=== PATIENT | female | born 1985 | race Caucasian/White ===

== ENCOUNTER 2023-10-20 14:58 | Emergency (ER) | payer OTHER, SELFPAY ==
--- NOTE | ~2023-10-20 | CT_ITS ---
EXAMINATION: CT ABDOMEN AND PELVIS WITH CONTRAST CLINICAL INFORMATION: Epigastric, right lower quadrant tenderness, rule out appendicitis COMPARISON: None TECHNIQUE: Multiple axial images were obtained from the superior aspect of the liver through the pubic symphysis after the administration of 85 mL of intravenous Omnipaque 350. Images were evaluated on independent dedicated 3-D workstation and 3-D images were reconstructed with concurrent radiologist supervision and subsequently interpreted. Oral contrast was not administered. This CT examination was performed using dose optimization techniques as appropriate, variously including the following: *Automated exposure control *Adjustment of mA and/or kV according to patient size (this includes techniques or standardized protocols for targeted exams where dose is matched to indication/reason for exam; i.e. extremities or head) *Use of iterative reconstruction technique DLP: 462 mGy-cm FINDINGS: LUNG BASES: The visualized lung bases are clear. CARDIOMEDIASTINUM: The visualized heart is normal in size without pericardial effusion. No coronary artery calcification. LIVER: Homogeneous and attenuation. Large measuring 19 cm in the midclavicular line. GALLBLADDER: Noninflamed. BILIARY SYSTEM: No intrahepatic or extrahepatic biliary dilation. PANCREAS: Homogeneous in attenuation. SPLEEN: Normal in size. GENITOURINARY: Bilateral kidneys demonstrate symmetric enhancement. No perinephric fluid collection. No renal calculi. No hydroureteronephrosis. ADRENAL GLANDS: Unremarkable. REPRODUCTIVE: Anteverted uterus. Peripherally enhancing hypodense mass in the right ovary measuring 2.2 cm. No periovarian inflammatory changes. GASTROINTESTINAL: The visualized alimentary tract is normal in course. No evidence of obstruction. APPENDIX: The appendix is seen in its entirety and is unremarkable. PERITONEUM: No pneumoperitoneum. No intra-abdominal fluid collection. VASCULATURE: The abdominal aorta is normal in course and caliber. LYMPH NODES: No pathologically enlarged abdominal or pelvic lymph nodes. SOFT TISSUES/MUSCULOSKELETAL: There is no acute fracture or significant focal osseous lesion. CT/CT abdomen pelvis w IV con IMPRESSION: Hyperdense peripherally enhancing right ovarian mass, likely representing a hemorrhagic cyst. There is no CT evidence of ovarian torsion, however this cannot be excluded based off this scan. Recommend pelvic ultrasound for further evaluation if clinically indicated. Normal appearance of appendix without appendicitis. Fleischner guidelines were followed. Electronically signed by: Victor Hugo Mondragon DO 10/20/2023 09:36 PM EDT
[2023-10-20 15:23] VITALS: BP 111/68; PULSE 71; RESP 18; TEMP 36.6; O2SAT 100; BMI 22.8
--- NOTE | 2023-10-20 15:23 | ED.ABDPAIN ---
HPI - Abdominal Pain General Chief Complaint: Abdominal Pain Stated Complaint: Upper abd pain 2hrs+ Time Seen by Provider: 10/20/23 17:15 Source: patient Mode of arrival: ambulatory Limitations: no limitations History of Present Illness ED Provider: Dr. Kevin Saenz HPI narrative: 38-year-old female recently diagnosed with H pylori taking clarithromycin, amoxicillin and omeprazole x1 week who presents emergency department for evaluation of abdominal pain. Patient states she had a sudden onset of epigastric pain around 13:00 hours. The pain was sharp and severe and was 9/10. The pain then migrated to her pelvic area in his now 3/10. She states she has had similar pain at least twice over the past month. She states that her doctor did a lot of tests on her and she had a breath test which was positive for H pylori. She states that today's episode however was more severe and lasted longer than her previous episodes. Patient had associated nausea with no vomiting. She denied fever, chills, frequency, urgency, dysuria or diarrhea. She denied heartburn like symptoms. Related Data Previous Rx's ?Medication ?Instructions ?Recorded ondansetron 4 mg disintegrating 4 mg PO Q6-8H PRN nausea and 10/20/23 tablet vomiting #14 tabs Allergies Allergy/AdvReac Type Severity Reaction Status Date / Time No Known Allergies Allergy Verified 10/20/23 15:25 Review of Systems Review of Systems Yes all other systems are reviewed and are negative [facility] Past Medical History [facility] Narrative: Social history: She denies tobacco use. She occasionally drinks alcohol. She denies drug use. Social History Social History Smoked in Last 30 Days: No Use of substances other than those prescribed or required for medical reasons: No Advance Directives: No Advance Directives Information Provided: No Do you have a plan to hurt others: No Plan Patient : No Physical Exam ED Vital Signs: Vital Signs - 24 hr 10/20/23 15:23 10/20/23 16:00 10/20/23 17:52 Temperature 97.9 F 98.4 F 97.9 F Pulse Rate 71 60 71 Respiratory Rate 18 14 18 Blood Pressure 111/68 110/69 111/68 Pulse Oximetry 100 100 100 Oxygen Delivery Method Room Air Room Air Room Air 10/20/23 18:00 10/20/23 20:00 Temperature 98.1 F 97.9 F Pulse Rate 68 62 Respiratory Rate 16 16 Blood Pressure 121/70 91/49 L Pulse Oximetry 100 97 Oxygen Delivery Method Room Air Room Air BMI result Body Mass Index 22.8 Vital signs were normal Exam: General: Awake, alert in no distress Head: Normocephalic, atraumatic EENT: PERRL, Lids normal, sclera normal, conjunctiva normal, nose normal , ears normal, throat without erythema or exudates Neck: Supple, no adenopathy Lung: breath sounds symmetric, no wheezing, rales or rhonchi Chest: symmetric movement, nontender Heart: regular rate and rhythm, normal S1, S2 no murmurs or rubs Abdomen: soft, no right upper quadrant tenderness, negative Nix sign, no epigastric tenderness, patient has moderate right lower quadrant and mild to moderate left lower quadrant tenderness with no rebound, no voluntary or involuntary guarding Back: no vertebral tenderness, no CVAT Extremities: no deformities, moves all extremities symmetrically Neuro: Awake, alert, oriented, normal speech, cranial nerves intact, moves all extremities symmetrically Psych: Pleasant, cooperative Course Course Course Narrative: This is a rapid medical exam. Deferred additional HPI, ROS, PE to primary provider. 38yo female here with complaints of mid/upper abdominal pain x several hours with nausea. No vomiting/diarrhea. Was positive for h.pylori, started antibiotic 7 days. No abdominal surgical history LMP 09/30 Will need labs, UA, ur preg. DULCE MARIA Bedoya APRN Medical Decision Making Medical Decision Making [facility] Narrative: 38-year-old female recently diagnosed with H pylori taking clarithromycin, amoxicillin and omeprazole x1 week who presents emergency department for evaluation of abdominal pain which came on suddenly at 13:00 hours, was severe and 9/10 located in the epigastric area and then migrated to the pelvic area and is currently 3/10. Patient had associated nausea with no vomiting. She had at least 2 episodes of similar pain over the last month which led to the diagnosis of H pylori. Differential diagnosis: ?Includes but is not limited to gastritis, GERD, peptic ulcer disease, gastric ulcer, biliary disease, cholecystitis, pancreatitis, appendicitis, anemia, electrolyte abnormalities, related pain Following tests were ordered: CBC, BMP, liver panel, lipase, quantitative beta-hCG, urinalysis, CT scan abdomen pelvis with IV contrast Patient was initially treated with the following: IV insert, normal saline x1 L Course: 17:50 My independent interpretation patient's laboratory evaluation is as follows: Elevated WBC 75743. Elevated glucose 118. LFTs were normal. Lipase was normal. Quantitative beta-hCG is was negative. Urinalysis was negative 22:22 CT scan of the patient's abdomen pelvis revealed a normal-appearing appendix. The patient does have a 2 cm right hemorrhagic ovarian cyst. The patient's repeat abdominal exam revealed no significant abdominal tenderness in the right lower quadrant or right pelvic area. The patient's pain resolved without treatment. At this time I do not think that the patient was acute appendicitis and I think that the hemorrhagic ovarian cyst is an incidental finding and I discuss this with the patient. Patient's symptoms are most likely caused by the clarithromycin that she was taking to treat her H pylori. I did discuss this with the patient. She was advised to take Tylenol as soon as she starts to get recurrence of the pain and to take Zofran ODT when she gets nausea. Patient was advised to follow up with her PCP to get outpatient ultrasound to follow the ovarian cyst to make sure that it is not getting bigger. She was given printed and verbal instructions and discharged home. Admission/Observation Consideration of admission/observation: Escalation of care including admission/observation considered Lab Data MDM Lab Attestation statement: I reviewed the patient's lab results. 10/20/23 15:37 10/20/23 15:37 Labs: Lab Results 10/20/23 10/20/23 Range/Units 15:37 17:58 WBC 11.9 H (4.8-10.8) X10*3/uL RBC 4.48 (4.20-5.50) X10*6/uL Hgb 12.6 (12.0-16.0) g/dl Hct 37.4 (37.0-47.0) % MCV 83.5 (80.0-98.0) fL MCH 28.1 (27.0-33.0) pg MCHC 33.7 (31.0-35.0) g/dl RDW 13.5 (11.0-16.0) % Plt Count 287 (160-400) X10*3/uL MPV 9.6 (9.4-12.3) fL Immature Gran % (Auto) 0.3 (0.0-0.4) % Neut % (Auto) 64.9 (45-73) % Lymph % (Auto) 17.0 L (20-40) % [place] % (Auto) 5.2 (2-11) % Eos % (Auto) 12.3 H (0-4) % Baso % (Auto) 0.3 (0-2) % Lymph # (Auto) 2.0 (1.2-4.9) X10*3/uL [place] # (Auto) 0.6 (0.1-1.2) X10*3/uL Eos # (Auto) 1.5 H (0.0-0.4) X10*3/uL Baso # (Auto) 0.0 (0.0-0.2) X10*3/uL Abs Immat Gran (auto) 0.03 (0.00-0.03) X10*3/uL Absolute Neuts (auto) 7.7 (2.0-8.3) x10*3/uL Absolute Nucleated RBC 0.000 (0.0-0.012) X10*3/uL Nucleated RBC % (auto) 0.0 (0.0-0.2) /100WBC Sodium 139 (135-145) mmol/L Potassium 3.7 (3.3-5.1) mmol/L Chloride 108 (96-108) mmol/L Carbon Dioxide 25 (22-29) mmol/L Anion Gap 10 L (12-20) BUN 12 (9-16) mg/dL Creatinine 0.80 (0.5-1.4) mg/dL Estim Creat Clear Calc 87.5 Estimated GFR > 60 Random Glucose 118 H (60-115) mg/dL Calcium 9.1 (8.4-10.2) mg/dL Total Bilirubin 0.4 (0.0-1.0) mg/dL Direct Bilirubin 0.1 (0.0-0.5) mg/dL AST 16 (5-31) U/L ALT 16 (0-31) U/L Alkaline Phosphatase 44 (39-117) U/L Total Protein 6.8 (6.5-8.0) g/dL Albumin 4.1 (3.5-5.0) g/dL Lipase 39 (8-78) U/L Beta HCG, Quant < 2 mIU/mL Urine Color Yellow Urine Appearance Clear Urine pH 6.5 (5.0-9.0) Ur Specific [place] <= 1.005 (1.005-1.025) Urine Protein Negative (Neg-Trace) mg/dL Urine Glucose (UA) Negative (Negative) mg/dL Urine Ketones Negative (Negative) mg/dL Urine Blood Negative (Negative) Urine Nitrite Negative (Negative) Ur Leukocyte Esterase Negative (Negative) Radiology Impression Discussion of test interpretation with radiology: I have reviewed the radiologist's reading. Radiologist Impression: EXAMINATION: CT ABDOMEN AND PELVIS WITH CONTRAST Impression: Hyperdense peripherally enhancing right ovarian mass, likely representing a hemorrhagic cyst. There is no CT evidence of ovarian torsion, however this cannot be excluded based off this scan. Recommend pelvic ultrasound for further evaluation if clinically indicated. Normal appearance of appendix without appendicitis. Fleischner guidelines were followed. Dictated By: Victor Hugo Mondragon 10/20/23 9800 Independent Historian Clinical information obtained from an independent historian. History obtained from or confirmed by: Spouse Prescription Management I considered prescription management with: Other (Antiemetics) Medications Administered Discontinued Medications Generic Name Dose Route Start Last Admin Trade Name Freq PRN Reason Stop Dose Admin Lactated Ringer's 1,000 mls @ 999 mls/hr 10/20/23 17:38 10/20/23 18:37 Lr IV 10/20/23 18:38 Infused .Q1H1M STA Infusion Iohexol 85 ml 10/20/23 18:56 10/20/23 18:57 Iohexol 350 Mg/Ml 100 Ml Infus..Btl IV 10/20/23 18:57 85 ml ONCE ONE Administration Discharge Plan Discharge Clinical Impression: Abdominal pain, Hemorrhagic cyst of right ovary Patient Disposition: Home, Self-Care Instructions: Ovarian Cyst (ED), Abdominal Pain (ED) Additional Instructions: Your blood work was unremarkable. Your test was negative. Your urine test was normal. The CT scan of your abdomen pelvis revealed a normal appendix which is reassuring especially since your tenderness on the right side of your abdomen went away without any treatment. The CT scan did reveal a 2.0 cm right hemorrhagic ovarian cyst. I do not think that this is the cause of your pain however your primary care doctor should order an outpatient ultrasound of your ovaries to help follow the cyst to make sure that it is not getting bigger. I believe that your pain is caused by the clarithromycin that your taking for the H pylori. I want you to continue taking this medication to try to complete the 2 week course in order to treat your H pylori. If you start to get recurrence of your pain take extra-strength Tylenol (acetaminophen) 500 mg pills, 2 pills every 6 hours as needed. If you start to get nausea take Zofran (ondansetron) 4 mg oral dissolvable tablets every 6 hours as needed for nausea and vomiting. Place the tablet under your tongue, the pill will dissolve and will get absorbed through your mouth. Follow-up with your doctor in 2 days. Please return to the emergency department if your symptoms get worse or if you develop any symptoms that are concerning to you. Prescriptions: New ondansetron 4 mg tablet,disintegrating 4 mg PO Q6-8H PRN (Reason: nausea and vomiting) Qty: 14 0RF Print Language: Cuban
[2023-10-20 15:42] LABS: MANUAL DIFF FLAG NO
[2023-10-20 15:45] LABS: Basophils Percent Auto 0.3 % (0-2); Eosinophils Absolute Auto 1.5 X10*3/uL (0.0-0.4); Eosinophils Percent Auto 12.3 % (0-4); Hematocrit 37.4 % (37.0-47.0); Hemoglobin 12.6 g/dl (12.0-16.0); Imm Gran Abs Auto 0.03 X10*3/uL (0.00-0.03); Imm Gran Pct Auto 0.3 % (0.0-0.4); Mean Corpuscular HGB Conc 33.7 g/dl (31.0-35.0); Mean Corpuscular Hemoglobin 28.1 pg (27.0-33.0); Mean Corpuscular Volume 83.5 fL (80.0-98.0); Mean Platelet Volume 9.6 fL (9.4-12.3); Monocytes Absolute Auto 0.6 X10*3/uL (0.1-1.2); Monocytes Percent Auto 5.2 % (2-11); Neutrophils Absolute Auto 7.7 x10*3/uL (2.0-8.3); Neutrophils Percent Auto 64.9 % (45-73); Platelet Count 287 X10*3/uL (160-400); Red Blood Count 4.48 X10*6/uL (4.20-5.50); Red Cell Distribution Width 13.5 % (11.0-16.0); White Blood Count 11.9 X10*3/uL (4.8-10.8)
[2023-10-20 16:00] VITALS: BP 110/69; PULSE 60; RESP 14; TEMP 36.9; O2SAT 100
[2023-10-20 16:08] LABS: Alanine Aminotransferase 16 U/L (0-31); Albumin Level 4.1 g/dL (3.5-5.0); Alkaline Phosphatase 44 U/L (39-117); Anion Gap 10 (12-20); Aspartate Amino Transferase 16 U/L (5-31); Bilirubin Direct 0.1 mg/dL (0.0-0.5); Bilirubin Total 0.4 mg/dL (0.0-1.0); Blood Urea Nitrogen 12 mg/dL (9-16); Calcium 9.1 mg/dL (8.4-10.2); Carbon Dioxide 25 mmol/L (22-29); Chloride 108 mmol/L (96-108); Creatinine Clr Calc Pharmacy 87.5; Estimated Glomerular Filt Rate > 60; Glucose Random 118 mg/dL (60-115); Lipase 39 U/L (8-78); Potassium 3.7 mmol/L (3.3-5.1); Sodium 139 mmol/L (135-145); Total Protein 6.8 g/dL (6.5-8.0)
[2023-10-20 17:52] VITALS: BP 111/68; PULSE 71; RESP 18; TEMP 36.6; O2SAT 100
[2023-10-20 17:55] LABS: HCG Quantitative < 2 mIU/mL
[2023-10-20] MEDS: Lactated Ringers 1,000 ML 999 ML IV (17:55)
--- NOTE | 2023-10-20 17:59 | PC.NURSE ---
Pt comes to ED today with c/o abd pain starting earlier this afternoon. Pain was initially 8/10 but is now 2/10. Pt reports minor nausea additionally. VSS, A&Ox3 20g LAC and IVF per MAR. Awaiting CT.
[2023-10-20 18:00] VITALS: BP 121/70; PULSE 68; RESP 16; TEMP 36.7; O2SAT 100
[2023-10-20 18:04] LABS: Appearance Urine Clear; Color Urine Yellow; Glucose Urine UA Negative (Negative); Leukocyte Esterase Urine Negative (Negative); Nitrite Urine Negative (Negative); PH 6.5 (5.0-9.0); Specific Gravity - Urine <= 1.005 (1.005-1.025); Urine Blood Negative (Negative); Urine Ketones Negative (Negative); Urine Protein Negative (Neg-Trace)
[2023-10-20] MEDS: iohexoL 350 MG/ML 100 ML INFUS..BTL 85 ML IV (18:57)
[2023-10-20 20:00] VITALS: BP 91/49; PULSE 62; RESP 16; TEMP 36.6; O2SAT 97
[2023-10-20 22:25] VITALS: BP 91/49; PULSE 62; RESP 16; TEMP 36.6; O2SAT 97
== END 2023-10-20 22:27 | disposition home or self-care (01) ==
PROVIDERS: Nurse Practitioner Family; Emergency Provider Emergency Medicine Emergency Medical Services; PCP Internal Medicine
DX: N83.201 Unspecified ovarian cyst, right side (principal); R10.13 Epigastric pain; R10.31 Right lower quadrant pain
CPT/HCPCS: 36415; 74177; 80048; 80076; 81003; 83690; 84702; 85025; 96360; 99284; 99285; J7120; Q9967